=== PATIENT | male | born 1945 | race Caucasian/White ===

== ENCOUNTER 2016-07-02 10:27 | Day surgery (SDC) | payer MEDICARE ==
[~2016-07-02 10:27] MED LIST: CEFAZOLIN SODIUM 2 GRAM PREMIX 100 ML IV ONE; IV START KIT ONE; LACTATED RINGERS 1,000 ML ONE
[2016-07-02] MEDS ORDERED: CEFAZOLIN SODIUM 2 GRAM PREMIX 100 ML IV PRN (10:30)
[2016-07-02] MEDS ORDERED: OPIUM/BELLADONNA ALKALOIDS 1 EACH SUP PR ONE (11:21)
[2016-07-02] MEDS ORDERED: ALBUTEROL/IPRATROPIUM 2.5/0.5 MG 3 ML/EACH DOSE ONE (11:35)
[2016-07-02] MEDS ORDERED: MIDAZOLAM HCL 1 MG/ML 2ML VIAL ONE ×2 (11:40→11:57)
[2016-07-02] MEDS ORDERED: SPINAL PROCEDURAL TRAY 1 EACH ONE (11:57)
[2016-07-02] MEDS ORDERED: BUPIVACAINE 0.75% SPINAL AMPUL 2 ML ONE (11:57)
[2016-07-02] MEDS ORDERED: PROPOFOL 40 ML IV ONE (12:05)
[2016-07-02] MEDS ORDERED: EPHEDRINE SULFATE 50 MG/ML 1ML VIAL ONE (12:16)
[2016-07-02] MEDS ORDERED: NALOXONE HCL 0.4 MG/ML VIAL IV PRN (12:20)
[2016-07-02] MEDS ORDERED: ATROPINE SULFATE 0.4 MG/1 ML VIAL IV PRN (12:20)
[2016-07-02] MEDS ORDERED: PROMETHAZINE HCL 25 MG/ML VIAL IM PRN (12:20)
[2016-07-02] MEDS ORDERED: FENTANYL 100 MCG/2 ML VIAL IV PRN (12:20)
[2016-07-02] MEDS ORDERED: ONDANSETRON 4 MG/2ML 2 ML VIAL IV PRN ×2 (12:20→13:24)
[2016-07-02] MEDS ORDERED: LACTATED RINGERS 1,000 ML IV SCH (12:30)
[2016-07-02] MEDS ORDERED: MORPHINE SULFATE 2 MG/ML SYRINGE IV PRN (13:24)
[2016-07-02] MEDS ORDERED: DIPHENHYDRAMINE HCL 25 MG CAPSULE PO PRN (13:24)
[2016-07-02] MEDS ORDERED: OPIUM/BELLADONNA ALKALOIDS 1 EACH SUP PR PRN (13:24)
[2016-07-02] MEDS ORDERED: BLISTEX LIPSTICK 1 EACH TP PRN (13:24)
[2016-07-02] MEDS ORDERED: BISACODYL 10 MG SUP PR PRN (13:24)
[2016-07-02] MEDS ORDERED: MENTHOL/CETYLPYRD 1 EACH LOZENGE PO PRN (13:24)
[2016-07-02 13:41] VITALS: BMI 29.9
[2016-07-02] MEDS: PHENAZOPYRIDINE HCL 200 MG TABLET PO SCH ×2 (16:57→21:16)
[2016-07-02] MEDS: HYDROCODONE/ACETAMINOPHEN 5/325MG TABLET PO PRN ×2 (16:57→21:16)
[2016-07-02] MEDS: LISINOPRIL 10 MG TABLET PO SCH (16:58)
[2016-07-02] MEDS: NABUMETONE 500 MG TABLET PO SCH ×2 (16:58→21:16)
[2016-07-02] MEDS: PANTOPRAZOLE 40 MG TABLET DR PO SCH (16:58)
[2016-07-02] MEDS: IPRATROPIUM BROMIDE 0.5 MG/2.5 ML DOSE IH SCH ×2 (17:23→23:53)
--- NOTE | 2016-07-02 18:51 | OP ---
PATRICIA MENDES JR [id number] DATE OF OPERATION: July 02, 2016 SURGEON: Jasper Baptiste M.D. NIGHT FILLER: None. ANESTHESIA: Spinal. 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 POSTOPERATIVE DIAGNOSES: 1. 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 2. Suspicious urothelial lesion inside right bladder neck. PROCEDURES: 1. REVISION TRANSURETHRAL RESECTION OF THE PROSTATE. 2. RESECTION OF MODERATE BLADDER TUMOR. SPECIMENS: 1. Chips of prostatic tissue. 2. Urothelial lesion inside right bladder neck. INDICATIONS: A 70-year-old man with a history of prostate carcinoma diagnosed in 2016 having undergone radiation therapy with a transurethral resection of the prostate prior to that. He has presented with recurrent lower urinary tract symptoms and cystoscopy demonstrated a right side tissue regrowth with cross-bridging centrally across the prostatic urethra probably related to radiation. His post void residual has increased substantially and he is showing some signs of detrusor decompensation. At this point, we are electing to resect the regrown tissue to reduce the outlet resistance and hope to get him emptying better. FINDINGS: The urethra was notable for multiple layers of circumferential anular strictures which are in themselves not obstructing. We did incise these at 12 o'clock with urethrotome. The prostatic urethra is approximately 4 cm in length and plugged by right-sided mound of tissue that has regrown, and adhesed centrally across the prostatic urethra to the left-sided tissues. Above that, the bladder neck has previously been resected and remains patent. Ureteral orifices normally disposed. The bladder wall itself is very severely trabeculated and damaged from previous obstruction. Once we were able to remove the right-sided tissue and get a better view of the trigonal area and the base of the bladder, we found a suspicious papillary like urothelial lesion situated inside the right bladder neck posteriorly coming within 1 to 2 cm of the right ureteral orifice. We resected this separately as a moderate sized bladder tumor. PROCEDURE: The patient was identified and brought to the operating room where spinal anesthetic was applied. Then he was placed in a dorsal lithotomy position. The genital region was prepared and draped sterilely. The distal urethra was calibrated with [place] sounds up to 30 Irish, and then a 27 Irish resectoscope sheath was introduced with the visual obturator. Findings are as reported above. We got only partially in the first time and withdrew and used an [place] urethrotome to incise the prostatic urethra at the dorsal position. Then, we were able to much more easily advance the resectoscope all the way into the bladder. Using saline as an irrigant and a bipolar loop cautery system, we resected the regrown right-sided prostate tissue, taking care to preserve the contours of the previous resection and to release the central adhesions. The incised part of the bladder neck also between the 7 o'clock and 10 o'clock positions to release a contracture in that area. Bleeding was controlled with cautery. Chips were removed through the resectoscope and collected. Once the fossa had been adequately resected, bleeding controlled and all visible chips removed, we inspected once again and at this point found quite a suspicious papillary change of the tissues just inside the bladder neck to the right posteriorly, progressing inwards to within about a centimeter or so of the right ureteral orifice. Carefully, we resected this area and obtained samples, and then continued fulguration of all visible papillary change in that region. The base itself was probably between 4 and 5 cm at the end. Once that was complete, we removed the resectoscope and passed a 24 Irish Johnson catheter to gravity drainage with 40 mL of water in its balloon. Three-way saline irrigation was instituted. Estimated blood loss was minima, less than 20 mL. Resection time approximately half an hour. No early complications. Patient tolerated this procedure well and was taken in stable condition to the post anesthesia room. cc: Deann Foote N.P.
[2016-07-02] MEDS ORDERED: POLYETHYLENE GLYCOL 3350 17 G POWD.SUSP PO SCH (21:00)
[2016-07-02] MEDS: DOCUSATE SODIUM 250 MG CAPSULE PO SCH (21:16)
[2016-07-03] MEDS: HYDROCODONE/ACETAMINOPHEN 5/325MG TABLET PO PRN (01:40)
[2016-07-03] MEDS: IPRATROPIUM BROMIDE 0.5 MG/2.5 ML DOSE IH SCH ×2 (06:03→07:39)
[2016-07-03] MEDS ORDERED: HYDROCHLOROTHIAZIDE 12.5 MG CAP PO SCH (09:00)
[2016-07-03] MEDS: PANTOPRAZOLE 40 MG TABLET DR PO SCH (09:15)
[2016-07-03] MEDS: LISINOPRIL 10 MG TABLET PO SCH (09:15)
[2016-07-03] MEDS: NABUMETONE 500 MG TABLET PO SCH (09:15)
[2016-07-03] MEDS: DOCUSATE SODIUM 250 MG CAPSULE PO SCH (09:15)
[2016-07-03] MEDS: PHENAZOPYRIDINE HCL 200 MG TABLET PO SCH (09:15)
[2016-07-03 12:48] VITALS: BP 143/95
--- NOTE | 2016-07-05 14:31 | SURGPATH ---
[facility] [address] [place] [id number] Patient Name: PATRICIA MENDES JR MR#: [id number] : 1945 Gender: M Specimen #: [id number] Collected: 07/02/2016 Received: 07/04/2016 Reported: 07/05/2016 Submitting Phys: MAGGY DELAROSA Copy To Phys: MARCELA TERRELL [facility] Clinical History / Pre-Operative Diagnosis: BLADDER NECK OBSTRUCTION Specimen Source / Surgical Procedure Performed: #1-PROSTATE CHIPS; #2-TISSUE INSIDE RIGHT BLADDER NECK Interpretation: 1. PROSTATE CHIPS, TRANSURETHRAL RESECTION (4 G): - FIBROGLANDULAR PROSTATE TISSUE SHOWING FIBROMUSCULAR HYPERPLASIA AND MILD CHRONIC INFLAMMATION. - NO EVIDENCE OF HIGH-GRADE PROSTATIC INTRAEPITHELIAL NEOPLASIA OR MALIGNANCY. 2. 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 - NO EVIDENCE OF LAMINA PROPRIA, ANGIOLYMPHATIC SPACE, OR SMOOTH MUSCLE INVASION. Comment: The slide from part #2 has been reviewed at the pathology intradepartmental conference and the pathologists present agree with the diagnosis. Electronically Signed Out Corby Campbell M.D., Ph.D. Gross Description: #1 The specimen is received in a formalin filled container labeled with the patient's name and "prostate chips". An aggregate of rubbery roche tissue fragments is 4.0 x 3.0 x 1.0 cm and 4 g. Totally embedded in cassettes 1A-1C. #2 The specimen is received in a formalin filled container labeled with the patient's name and "tissue inside right bladder neck". Four rubbery roche tissue fragments are 0.5-0.7 cm. Totally embedded in cassette #2. Lorraine Alfonso. Microscopic Description: 1. Examination of multiple sections from the transurethrally resected prostate chips shows fragments of fibroglandular prostate tissue with fibromuscular hyperplasia and a mild chronic inflammatory cell infiltrate. There is no evidence of high-grade prostatic intraepithelial neoplasia or malignancy. 2. Examination of multiple levels from the right bladder neck transurethral resection shows a papillary proliferation of mildly atypical urothelium. There is no evidence of lamina propria, angiolymphatic space, or smooth muscle invasion. 1: 75109 2: 76996 N40.1 D41.4
== END 2016-07-03 15:00 | disposition home or self-care (01) ==
LOC: SDC 10:27 → MS 13:18 → SDC 07-03 15:00
PROVIDERS: ATTEND Urology
PROC: 0VT08ZZ Resection of Prostate, Via Natural or Artificial Opening Endoscopic (ICD-10-PCS; principal; 2016-07-02)
DX: N32.0 Bladder-neck obstruction (principal); N40.1 Benign prostatic hyperplasia with lower urinary tract symptoms; D41.4 Neoplasm of uncertain behavior of bladder; I10 Essential (primary) hypertension; E78.5 Hyperlipidemia, unspecified; Z86.718 Personal history of other venous thrombosis and embolism; J44.9 Chronic obstructive pulmonary disease, unspecified; Z87.891 Personal history of nicotine dependence